=== PATIENT | male | born 1995 | race African-American/Black ===

== ENCOUNTER 2016-10-08 22:18 | Emergency (ER) | payer BC ==
[~2016-10-08] VITALS: Ht 188 cm; Wt 142.4 kg
[2016-10-10 23:18] LABS: CHLAMYDIA TRACH Detected (Not Detected); N GONOR Not Detected (Not Detected)
== END 2016-10-09 00:05 | disposition home or self-care (01) ==
LOC: SED 22:18
PROVIDERS: Student in an Organized Health Care Education/Training Program
DX: Z20.2 Contact with and (suspected) exposure to infections with a predominantly sexual mode of transmission (principal)
CPT/HCPCS: 87491; 87591; 96372; 99283; J0696